=== PATIENT | male | born 1940 | race Two or more races ===

== ENCOUNTER → 2017-12-10 | Outpatient (CLI) | payer OTHER ==
[~2017-12-10] MED LIST: ALBUAER3 IN; ALBUAER3 INH; AMLO10TA2 PO; ARIP5TAB14 OR; ASPI81CH43; ASPI81TA27 PO; CALC-440 PO; CALC600C7 PO; CAR3125T PO; CARV3.1240 PO; CLOP75TA28 PO; DONE10TA40 PO; DONETAB6 PO; FLU220IH IN; FLU220IH INH; LISI-646 PO; MEMA10TA; MEMA1TAB2 PO; MULT-228 PO; OLAN5TAB30 PO; OYST500T28 PO; SIMV-8 PO; SIMV20TA90 OR; SPIR25TA88 OR; SPIR25TA89 PO
[2017-12-10 10:44] LABS: Basophils # (auto) 0 uL; Basophils % (auto) 0.5 % (0.0-2.0); Eosinophils # (auto) 0.3 uL; Hemoglobin 16.7 g/dL (13.5-17.5); Lymphocytes # (auto) 1.9 uL; Lymphocytes % (auto) 24.1 % (10.0-50.0); Mean Corpuscular Hgb Conc. 33.5 g/dL (32.0-36.0); Mean Corpuscular Volume 98.6 fL (80.0-100.0); Monocytes # (auto) 0.4 uL; Neutrophils # (auto) 5.1 uL; Neutrophils % (auto) 66.4 % (37.0-80.0); Nucleated Red Blood Cells % 0.1 %; Platelet Count (auto) 243 10^3/uL (140-450); Red Blood Cells 5.07 10^6/uL (4.5-5.90); Red Cell Distribution Width 12.8 % (11.8-14.3); White Blood Cell 7.8 10^3/uL (4.4-10.8)
[2017-12-10 10:51] LABS: Urine Bacteria NONE SEEN /hpf (None Seen); Urine Blood Negative /uL (Negative); Urine Hyaline Cast FEW /lpf (0 - 2); Urine Mucus FEW (None Seen); Urine Specific Gravity 1.025 (1.001-1.035); Urine WBC 3 /hpf (0 - 3)
[2017-12-10 11:32] LABS: Albumin 4.2 g/dL (3.4-5.0); Bilirubin, Total 1.1 mg/dL (0.2-1.0); Calcium 9.7 mg/dL (8.5-10.1); Total Protein 8.7 g/dL (6.4-8.2)
[2017-12-11 11:31] LABS: Folate (Folic Acid) > 24.00 ng/mL (5.38-24)
== END | disposition home or self-care (01) ==
LOC: LAB 09:43
PROVIDERS: ATTEND Family Medicine
DX: I10 Essential (primary) hypertension (principal); E78.5 Hyperlipidemia, unspecified; I63.9 Cerebral infarction, unspecified
CPT/HCPCS: 36415; 80053; 80061; 81001; 82306; 82607; 82746; 85025

== ENCOUNTER 2018-01-20 22:23 | Emergency (ER) | payer OTHER ==
[~2018-01-20] VITALS: Ht 180.3 cm; Wt 90.7 kg
[~2018-01-20 22:23] MED LIST changes: -ALBUAER3 INH; -ASPI81TA27 PO; -CALC-440 PO; -CALC600C7 PO; -CARV3.1240 PO; -DONE10TA40 PO; -DONETAB6 PO; -FLU220IH IN; -MEMA1TAB2 PO; -MULT-228 PO; -SIMV-8 PO; -SPIR25TA89 PO
[2018-01-20 22:33] VITALS: BP 136/91
[2018-01-21] MEDS ORDERED: DONE10TA40 PO (14:10)
[2018-01-21] MEDS ORDERED: CALC-440 PO (14:10)
[2018-01-21] MEDS ORDERED: MULT-228 PO (14:10)
[2018-01-21] MEDS ORDERED: OLAN5TAB30 PO (14:31)
== END 2018-01-21 01:04 | disposition left against medical advice (07) ==
LOC: EDBD 22:23 → ER 22:23
DX: S30.810A Abrasion of lower back and pelvis, initial encounter (principal); Z53.21 Procedure and treatment not carried out due to patient leaving prior to being seen by health care provider; X58.XXXA Exposure to other specified factors, initial encounter; Y93.89 Activity, other specified; Y99.8 Other external cause status; Y92.89 Other specified places as the place of occurrence of the external cause

== ENCOUNTER 2019-12-13 02:25 | Emergency (ER) | payer OTHER ==
[~2019-12-13] VITALS: Ht 180.3 cm; Wt 72.6 kg
[~2019-12-13 02:25] MED LIST changes: -ALBUAER3 IN; +ALBUAER3 INH; -AMLO10TA2 PO; -ARIP5TAB14 OR; +ASPI-404 PO; -ASPI81CH43; +CALC600C7 PO; -CAR3125T PO; +CARV3.1240 PO; +DONETAB6 PO; +FLU220IH IN; -FLU220IH INH; -LISI-646 PO; -MEMA10TA; +MEMA1TAB5 PO; +MULT-228 PO; -OYST500T28 PO; +SIMV-8 PO; -SIMV20TA90 OR; +SPIR25TA8 PO; -SPIR25TA88 OR
[2019-12-13 03:09] VITALS: BP 123/72
== END 2019-12-13 03:19 | disposition left against medical advice (07) ==
LOC: ER 02:29
DX: T14.90XA Injury, unspecified, initial encounter (principal); Z53.21 Procedure and treatment not carried out due to patient leaving prior to being seen by health care provider; W19.XXXA Unspecified fall, initial encounter; Y93.89 Activity, other specified; Y99.8 Other external cause status; Y92.89 Other specified places as the place of occurrence of the external cause

== ENCOUNTER → 2019-12-15 | Outpatient (CLI) | payer OTHER ==
[2019-12-15 10:01] LABS: Urine Bacteria FEW /hpf (None Seen); Urine Blood Negative /uL (Negative); Urine Specific Gravity 1.029 (1.001-1.035); Urine WBC 1 /hpf (0 - 3)
[2019-12-15 10:09] LABS: Basophils # (auto) 0 uL; Basophils % (auto) 0.4 % (0.0-2.0); Eosinophils # (auto) 0.1 uL; Hematocrit 45.9 % (41.0-53.0); Hemoglobin 15.3 g/dL (13.5-17.5); Lymphocytes # (auto) 1.1 uL; Lymphocytes % (auto) 10.8 % (10.0-50.0); Mean Corpuscular Hemoglobin 32.9 pg (28.0-32.0); Mean Corpuscular Hgb Conc. 33.4 g/dL (32.0-36.0); Mean Corpuscular Volume 98.7 fL (80.0-100.0); Monocytes # (auto) 0.8 uL; Monocytes % (auto) 8.3 % (0.0-12.0); Neutrophils % (auto) 79.5 % (37.0-80.0); Platelet Count (auto) 372 10^3/uL (140-450); Red Blood Cells 4.65 10^6/uL (4.5-5.90); Red Cell Distribution Width 13.3 % (11.8-14.3); White Blood Cell 10.1 10^3/uL (4.4-10.8)
[2019-12-15 10:22] LABS: Albumin 3.8 g/dL (3.4-5.0); Calcium 10.3 mg/dL (8.5-10.1); Potassium 4.8 mmol/L (3.5-5.1)
[2019-12-15 10:29] LABS: BUN/Creatinine Ratio 21.4; Bilirubin, Total 2.1 mg/dL (0.2-1.0); Total Protein 8.9 g/dL (6.4-8.2)
== END | disposition home or self-care (01) ==
LOC: LAB 09:15
PROVIDERS: ATTEND Nurse Practitioner
DX: E78.5 Hyperlipidemia, unspecified (principal)
CPT/HCPCS: 36415; 80053; 80061; 81001; 84443; 85025

== ENCOUNTER 2020-02-16 16:30 | Inpatient (IN) | payer OTHER ==
[~2020-02-16] VITALS: Ht 177.8 cm; Wt 73.2 kg
[~2020-02-16 16:30] MED LIST changes: +OLAN1TAB7 PO; -OLAN5TAB30 PO
[2020-02-16 17:00] VITALS: BP 98/63
[2020-02-16] MEDS ORDERED: hydrALAZINE HCL 20 MG/ML VL IV PRN (17:00)
[2020-02-16] MEDS ORDERED: NITROGLYCERIN 0.4 MG SL TAB SL PRN (17:00)
[2020-02-16] MEDS ORDERED: MORPHINE SULF INJ 2 MG/ML SYRINGE 1ML IV PRN (17:00)
[2020-02-16 17:17] VITALS: BP 100/70
[2020-02-16 17:32] LABS: Basophils # (auto) 0 10 ^3/uL (0-0.2); Basophils % (auto) 0.5 % (0.0-2.0); Eosinophils # (auto) 0.2 10 ^3/uL (0-0.8); Eosinophils % (auto) 2.9 % (0.0-7.0); Hematocrit 35.8 % (41.0-53.0); Hemoglobin 11.6 g/dL (13.5-17.5); Lymphocytes % (auto) 13.1 % (10.0-50.0); Mean Corpuscular Hemoglobin 32.2 pg (28.0-32.0); Mean Corpuscular Hgb Conc. 32.5 g/dL (32.0-36.0); Mean Corpuscular Volume 99.1 fL (80.0-100.0); Monocytes # (auto) 0.7 10 ^3/uL (0-1.3); Monocytes % (auto) 9.1 % (0.0-12.0); Neutrophils # (auto) 5.8 10 ^3/uL (1.6-8.6); Neutrophils % (auto) 74.4 % (37.0-80.0); Platelet Count (auto) 310 10^3/uL (140-450); Red Blood Cells 3.61 10^6/uL (4.5-5.90); Red Cell Distribution Width 12.8 % (11.8-14.3); White Blood Cell 7.8 10^3/uL (4.4-10.8)
[2020-02-16 17:40] LABS: INR 1.12 (0.9-1.15); Partial Thromboplastin Time 30.7 sec (23.64-32.05)
[2020-02-16 17:44] LABS: Anion Gap 6 (5-15); BUN/Creatinine Ratio 34.8; Blood Urea Nitrogen 23 mg/dL (7-18); Calcium 9.2 mg/dL (8.5-10.1); Carbon Dioxide 28 mmol/L (21-32); Chloride 103 mmol/L (98-107); GFR African American 149 mL/min; GFR Non-African American 123 mL/min; Glucose 106 mg/dL (74-106); Potassium 4.4 mmol/L (3.5-5.1); Sodium 137 mmol/L (136-145)
[2020-02-16] MEDS: CARVEDILOL 3.125 MG TAB PO SCH (18:00)
[2020-02-16] MEDS: SODIUM CHLORIDE 0.9% 1,000 ML IV SCH (19:30)
--- NOTE | 2020-02-16 19:35 | NUR ---
Opening Shift Note Assumed care of patient, awake but unresponsive and aphasic. Pupils 3mm and fixed. Patient placed on tele box #51 and rhythm is sinus rhythm with artifact. NG tube in right nare, end at 63cm. Confirmed placement via auscultation. Sitter at bedside. No S/S of distress/SOB or pain. Hale cath secured to thigh and collection bag is below the bladder. SCDs applied to both feet. Patient wearing helmet to reinforce skull. Instructed on POC and to call for assist PRN, will continue to monitor for changes Q1hr and PRN.
--- NOTE | 2020-02-16 19:59 | NUR ---
Midline Placement: Patient educated on need for midline placement. All risks and benefits explained and all questions and concerns addresses prior to procedure. 18g/10cm midline inserted via left brachial vein using Ultrasound. Sterile technique utilized. Blood return obtained from lumen and flushed easily with NS using proper technique. Midline secured with saline lock; biodisc and occlusive dressing applied. Primary RN notified. Midline lot #[id number]
--- NOTE | 2020-02-16 20:13 | NUR ---
Performed EKG on patient for admission at 1943, revealing sinus rhythm with rate of 92. EKG singed by MD Clifton at 1953. "NSR with T-wave inversions in II, II, and aVF. Orders: 1) BNP now, 2) Troponin now, 3) Serial troponin q 6 hrs after first x 2. Orders repeated, verified, and placed.
[2020-02-16] MEDS: ATORVASTATIN 20 MG TAB PO SCH (21:35)
[2020-02-16 22:00] VITALS: BP 117/68
[2020-02-17] VITALS (7 sets, daily range): BP systolic 117–145; BP diastolic 64–92
[2020-02-17 02:38] LABS: Urine Bacteria FEW /hpf (None Seen); Urine Blood 3+ /uL (Negative); Urine Mucus FEW (None Seen); Urine Specific Gravity 1.023 (1.001-1.035); Urine WBC 3 /hpf (0 - 3)
[2020-02-17 05:55] LABS: Basophils # (auto) 0 10 ^3/uL (0-0.2); Basophils % (auto) 0.4 % (0.0-2.0); Eosinophils # (auto) 0.2 10 ^3/uL (0-0.8); Eosinophils % (auto) 2.9 % (0.0-7.0); Hematocrit 33.2 % (41.0-53.0); Lymphocytes # (auto) 1.2 10 ^3/uL (0.4-5.4); Lymphocytes % (auto) 13.8 % (10.0-50.0); Mean Corpuscular Hemoglobin 32.9 pg (28.0-32.0); Mean Corpuscular Hgb Conc. 33.2 g/dL (32.0-36.0); Mean Corpuscular Volume 98.9 fL (80.0-100.0); Monocytes # (auto) 0.7 10 ^3/uL (0-1.3); Monocytes % (auto) 8.4 % (0.0-12.0); Neutrophils # (auto) 6.3 10 ^3/uL (1.6-8.6); Neutrophils % (auto) 74.5 % (37.0-80.0); Nucleated Red Blood Cells % 0.1 %; Platelet Count (auto) 312 10^3/uL (140-450); Red Blood Cells 3.36 10^6/uL (4.5-5.90); Red Cell Distribution Width 12.5 % (11.8-14.3); White Blood Cell 8.4 10^3/uL (4.4-10.8)
[2020-02-17] MEDS: SODIUM CHLORIDE 0.9% 1,000 ML IV SCH ×2 (06:00→17:43)
[2020-02-17 06:03] LABS: BUN/Creatinine Ratio 37.5; Potassium 4.2 mmol/L (3.5-5.1)
[2020-02-17] MEDS: CARVEDILOL 3.125 MG TAB PO SCH ×2 (08:19→17:17)
[2020-02-17] MEDS ORDERED: SODIUM CHLORIDE LOCK 10 ML ONE (09:32)
[2020-02-17] MEDS ORDERED: LIDOCAINE VISCOUS 2% 15ML UD ONE (09:32)
[2020-02-17] MEDS ORDERED: diphenhdrAMINE HCL 50 MG/1 ML VL ONE (09:33)
[2020-02-17] MEDS ORDERED: BENZOCAINE (DENTAL) 20 % SPRAY 60ML MT ONE (10:41)
[2020-02-17] MEDS ORDERED: ceFAZolin 1GM/50ML 50 ML IV ONE (10:44)
[2020-02-17] MEDS: MIDAZOLAM HCL 5 MG/ML-1ML VIAL ONE ×2 (10:56→11:00)
[2020-02-17] MEDS: fentaNYL CITRATE 100 MCG/2 ML VL ONE ×2 (10:56→11:00)
--- NOTE | 2020-02-17 12:00 | NUR ---
WOUND CARE NOTE: WOUND CONSULT ORDERED FOR PATIENT WITH LOW CAPO SCORE 12. PATIENT ADMITTED TO REPLACED BY [facility] WITH DIAGNOSIS OF CVA. HE WAS RECENTLY TRANSFERRED TO THIS FACILITY FROM [facility]. PATIENT CAME WITH HIS OWN LOW AIRLOSS OVERLAY MATTRESS. HE CURRENTLY IS IN SURGERY RECEIVING A PEG TUB PLACEMENT. PER BEDSIDE NURSEARLETTE, PATIENT IS WOUND FREE, WITH BLANCHABLE BONY PROMINENCES. SKIN/WOUND CARE PLAN UPDATED. RECOMMEND: FREQUENT TURN SCHEDULE Q 2 HOURS, PRN CONDITION PERMITS, WITH PRESSURE REDISTRIBUTION USING PILLOWS/WEDGES, SPECIALTY AIR MATTRESS, BID/PRN APPLICATION WITH MOISTURE BARRIER CREAM, OPTIFOAM GENTLE SACRAL DRESSING, SKIN/WOUND CARE PLAN, DIETARY CONSULT, CONTINUED MONITORING BY WOUND CARE TEAM.
--- NOTE | 2020-02-17 12:55 | NUR ---
peg tube inserted. do not use until cleared by dr gonzalez
--- NOTE | 2020-02-17 15:31 | NUR ---
Nutrition Assessment Notes Please refer to link for full assessment notes. Est Energy needs: 5164-8106 kcals (20-23 kcal/kgBW) Est Protein needs: 73-80 gms/day (1.0-1.1 gm/kgBW) Will continue to monitor and reassess prn. Addendum: 02/17/20 at [address] Amended: Links added.
--- NOTE | 2020-02-17 15:40 | NUR ---
Attempted PT eval. Pt had PEG placement procedure this morning and is very lethargic. Pt was unable to open his eyes. Will attempt eval tomorrow.
--- NOTE | 2020-02-17 19:36 | NUR ---
Opening Shift Note Assumed care of patient, awake but unresponsive and aphasic. Pupils 3mm and fixed. Patient wearing abdominal binder over PEG tube site. PEG tube site is clean, dry, and intact. Sitter at bedside. No S/S of distress/SOB or pain. Hale cath secured to thigh and collection bag is below the bladder. Tele box number matches monitor and leads are in correct placement. NS infusing at 75 mls/hr. Patient wearing helmet to reinforce skull. Instructed on POC and to call for assist PRN, will continue to monitor for changes Q1hr and PRN.
[2020-02-17] MEDS: ATORVASTATIN 20 MG TAB PO SCH (22:00)
[2020-02-18 05:00] VITALS: BP 131/75
[2020-02-18] MEDS: CARVEDILOL 3.125 MG TAB PO SCH ×2 (07:23→18:59)
[2020-02-18 08:00] VITALS: BP 127/79
[2020-02-18 09:00] VITALS: BP 127/73
[2020-02-18] MEDS: SODIUM CHLORIDE 0.9% 1,000 ML IV SCH (09:37)
--- NOTE | 2020-02-18 10:09 | NUR ---
DR LUO AT BEDSIDE. INFORMED ME THAT THE PEG TUBE WAS NOW VIABLE FOR USE
[2020-02-18] MEDS ORDERED: LISI-646 PO (11:17)
[2020-02-18] MEDS ORDERED: Jevity 1.2 Cal/Fiber 1 Liter GT SCH (12:30)
--- NOTE | 2020-02-18 12:40 | NUR ---
assessment Patient is a 79 year old male who is aphasic. Per patients daughter Aura who is patients conservator prior to admission patient lived home with her and functioned with her assistance. Patients PCP is Dr Bee. Patient has a fww for home use. Per Aura patient was not eating or ambulating so he was taken to ER and found to have a CVA with cranial bleeding. I informed Aura that patient has a ss consult for dc planning and hospice. Per Aura patient will return home with her on discharge. I have offered Aura a list of medicare providers. Per Aura she wants the hospice that Dr Bee suggest. Per Dr Bee [facility] to be contacted. MD order sent to [facility]. Per Yamel she will call Aura and set up meeting. Waiting on consents to be signed and discharge now. Addendum: 02/18/20 at 1246 by Su AGRAWAL Amended: Links added.
--- NOTE | 2020-02-18 19:30 | NUR ---
OPENING NOTE REPORT RECEIVED FROM DAY SHIFT RN. PATIENT IS AWAKE, ALERT BUT DOES NOT RESPOND. PATIENT UNABLE TO RESPOND TO ANY COMMANDS VERBALLY OR PHYSICALLY. PATIENT IS S/P CRANIOTOMY EVACUATION OF SUBDURAL HEMATOMA ON 02/10/20 AT [place]. HEAD DRESSINGS AND HELMET IN PLACE. SEIZURE PRECAUTIONS IN PLACE. PATIENT HAS SEVERE RIGHT SIDED WEAKNESS, NOT ABLE TO MOVE RIGHT ARM. PATIENT ABLE TO MOVE LEFT ARM WITH SOME WEAKNESS. HERMAN DRAINING YELLOW URINE TO GRAVITY. LEFT UPPER ARM MIDLINE RUNNING NS AT 75ML/HR. PEG TUBE IN PLACE. RESIDUAL CHECKED AND IS 10ML. JEVITY RUNNING AT 30ML/HR ORDERED, PATIENT SITTING UP AT 30 DEGREE ANGLE. PATIENT ON WAFFLE OVERLAY MATTRESS, TO BE TURNED Q2H PREVENTATIVE MEASURE. SCD'S ON BILATERAL LEGS. SITTER AT BEDSIDE FOR PATIENT SAFETY.
[2020-02-18] MEDS: ATORVASTATIN 20 MG TAB PO SCH (21:18)
--- NOTE | 2020-02-18 21:20 | NUR ---
2200 MEDICATION SCHEDULED MEDICATION CRUSHED AND ADMINISTERED VIA PEG TUBE. RESIDUAL CHECKED BEFORE ADMINISTRATION. RESIDUAL LESS THAN 10ML.
[2020-02-18 22:00] VITALS: BP 112/58
[2020-02-19] MEDS: SODIUM CHLORIDE 0.9% 1,000 ML IV SCH ×2 (00:12→15:21)
[2020-02-19 05:55] VITALS: BP 130/67
--- NOTE | 2020-02-19 07:09 | NUR ---
CLOSING PATIENT SLEEPING, NO S/S OF DISTRESS NOTED. SITTER AT BEDSIDE FOR SAFETY. WILL ENDORSE CARE TO AM SHIFT RN
--- NOTE | 2020-02-19 07:45 | NUR ---
OPENING SHIFT NOTE: PATIENT RESTING IN BED. RESPONDED WITH EYE OPENING TO VERBAL STIMULI. PATIENT ABLE TO SMILE AND MAKE BABBLE SOUNDS, INCOMPREHENSIBLE WORDS NOTED, PATIENT SMACKING LIPS. PUPILS PERRLA, RIGHT SIDE NOTED TO BE MORE RIGID AND IMMOVABLE THAN LEFT. PATIENT ABLE TO MOVE LEFT ARM WITH FULL ROM. HELMET REMOVED FROM HEAD TO ASSESS SUTURES, NOTED THEM TO BE WELL APPROXIMATED, CDI NON-ODOROUS. PATIENT ON SEIZURE PRECAUTIONS, TURNING SCHEDULE Q2. HERMAN HUNG BELOW BLADDER, FREE OF KINKS. PEG TUBE SITE CDI ABDOMINAL BINDER IN PLACE. MINIMAL RESIDUAL NOTED 30ML. HOB > 30 DEGREES. CALL LIGHT PLACED WITHIN REACH, SITTER AT BEDSIDE. WILL CONTINUE TO MONITOR.
[2020-02-19] MEDS: CARVEDILOL 3.125 MG TAB PO SCH (09:51)
--- NOTE | 2020-02-19 10:23 | NUR ---
[facility]: [facility] spoke with Dora DAVIDSON. Faxed D/C order per request. [employer] transportation apple picker time to be arranged.
--- NOTE | 2020-02-19 10:42 | NUR ---
Call back from Antonette Whitman called from [facility] stating that she had received the fax regarding the patient. Estimated pick-up time 1500.
--- NOTE | 2020-02-19 16:04 | NUR ---
DISCHARGE: PATIENT DISCHARGED HOME WITH HOSPICE. PATIENT UNABLE TO SIGN ALL DISCHARGE FORMS, ANA CAREGIVER INSTRUCTED ON EDUCATION MATERIALS OVER THE PHONE. POLST FORM SIGNED AND DOUBLE VERIFIED BY TWO RN'S OVER THE PHONE. MIDLINE REMOVED MANUAL PRESSURE APPLIED. HERMAN REMAINED AND EMPTIED PRIOR TO DC. PATIENT LEFT WITH ALL BELONGINGS AND ADDITIONAL SUPPLIES GIVEN FOR TUBE FEEDINGS. PATIENT LEFT WITH [employer] WITH NO SIGNS OF DISTRESS.
== END 2020-02-19 16:15 | disposition hospice, home (50) | DRG 394 ==
LOC: TELE-WESTW 16:30
PROVIDERS: ADMIT Internal Medicine; ATTEND Internal Medicine
PROC: 0DH63UZ Insertion of Feeding Device into Stomach, Percutaneous Approach (ICD-10-PCS; principal; 2020-02-17 10:51)
DX: Z43.1 Encounter for attention to gastrostomy (principal); R47.01 Aphasia; G81.94 Hemiplegia, unspecified affecting left nondominant side; R13.10 Dysphagia, unspecified; I10 Essential (primary) hypertension; E78.5 Hyperlipidemia, unspecified; Z66 Do not resuscitate; Z51.5 Encounter for palliative care; Z74.01 Bed confinement status; Z86.73 Personal history of transient ischemic attack (TIA), and cerebral infarction without residual deficits; Z79.899 Other long term (current) drug therapy
CPT/HCPCS: 36415; 71045; 80048; 81001; 83880; 84484; 85025; 85610; 85730; 86850; 86900; 86901; 87081; 97163; G0378; J0690; J2250